=== PATIENT | female | born 1955 | race Caucasian/White ===

== ENCOUNTER 2018-05-20 18:53 | Emergency (ER) | payer BC, OTHER ==
--- NOTE | 2018-05-20 19:05 | EDM.PDOC ---
ED HPI GENERAL MEDICAL PROBLEM - General Stated Complaint: PAIN UPPER CHEST BACK SHOULDERS Time Seen by Provider: 05/20/18 18:53 Source of Information: Reports: Patient, Family History Limitations: Reports: No Limitations - History of Present Illness INITIAL COMMENTS - FREE TEXT/NARRATIVE: 63 y.o.w.f came to the ed because of sudden backl felt weak, with malacia and mid upper abdominal pain after eating at [employer] at pm. Pt is on a mini does pack. Pt is nauseated but did not vomit. No trauma. Last upper GI endoscopy was 1 yeas ago and found to be normal. No other acute medical issues. BP 167/85 RR 20 Pulse ox 100% on RA Temp 36.7 Pulse 81 Onset Date: 05/20/18 Onset Time: 15:00 Duration: Hour(s):, Getting Worse, Intermittent Location: Reports: Abdomen Quality: Reports: Ache, Burning Severity: Moderate Improves with: Reports: Medication, Rest Worsens with: Reports: Eating Context: Reports: Other (bad food) Associated Symptoms: Reports: Other (nausea) Treatments STRATEGY ASSOCIATE: Reports: Other (see below) Epigastric/Mid back Pain Score (Numeric/FACES): 10 - Related Data Allergies Allergy/AdvReac Type Severity Reaction Status Date / Time ciprofloxacin Allergy Cannot Verified 05/20/18 19:03 Remember Home Meds: Home Meds LORazepam [Ativan] 0.5 mg PO BID PRN 02/26/15 [History] QUEtiapine [SEROquel] 25 mg PO BEDTIME 02/26/15 [History] LORazepam 0.5 mg PO BID 05/20/18 [History] Lansoprazole [Prevacid] 30 mg PO DAILY 05/20/18 [History] Ondansetron [Zofran ODT] 4 mg PO Q6H PRN #20 tab.dis 05/20/18 [Rx] methylPREDNISolone [Methylprednisolone] 4 mg PO DAILY 05/20/18 [History] Past Medical History Other Cardiovascular History: NOTHING CAME OF THE CHESTPAIN ED ROS GENERAL - Review of Systems Review Of Systems: See Below Constitutional: Reports: No Symptoms HEENT: Reports: No Symptoms Respiratory: Reports: No Symptoms Cardiovascular: Reports: No Symptoms Endocrine: Reports: No Symptoms GI/Abdominal: Reports: Abdominal Pain : Reports: No Symptoms Musculoskeletal: Reports: Back Pain Skin: Reports: No Symptoms Neurological: Reports: No Symptoms Psychiatric: Reports: No Symptoms Hematologic/Lymphatic: Reports: No Symptoms Immunologic: Reports: No Symptoms ED EXAM, NEURO - Physical Exam Exam: See Below Exam Limited By: No Limitations General Appearance: Alert, WD/WN, Mild Distress, Moderate Distress Eye Exam: Bilateral Eye: Normal Inspection Ears: Normal External Exam Nose: Normal Inspection Throat/Mouth: Normal Inspection, Normal Voice, No Airway Compromise Head Exam: Atraumatic, Normocephalic Neck: Normal Inspection, Supple, Non-Tender Respiratory/Chest: No Respiratory Distress, Lungs Clear, Normal Breath Sounds, Chest Non-Tender Cardiovascular: Normal Peripheral Pulses, Regular Rate, Rhythm, No Edema, No Gallop, No Murmur, No Rub GI/Abdominal: Tender (epigastric) (Female) Exam: Deferred Rectal (Female) Exam: Deferred Back Exam: Normal Inspection, Decreased Range of Motion, Paraspinal Tenderness, Vertebral Tenderness Extremities: Normal Inspection, Normal Range of Motion, Non-Tender, No Pedal Edema, Normal Capillary Refill Psychiatric: Normal Affect, Normal Mood Skin Exam: Warm, Dry, Intact, Normal Color, No Rash EKG INTERPRETATION EKG Date: 05/20/18 Time: 19:00 Rhythm: NSR Rate (Beats/Min): 69 Mcgrann: Normal P-Wave: Present QRS: Normal ST-T: Normal QT: Normal Comparison: NA - No Prior EKG Course - Vital Signs Text/Narrative:: 63 y.o.w.f came to the ed because of sudden backl felt weak, with malacia and mid upper abdominal pain after eating at [employer] at pm. Pt is on a mini does pack. Pt is nauseated but did not vomit. No trauma. Last upper GI endoscopy was 1 yeas ago and found to be normal. No other acute medical issues. BP 167/85 RR 20 Pulse ox 100% on RA Temp 36.7 Pulse 81 PE: Thin, waek appearing 63 y.o.w.f with bilat upper back pain radiating to her mid upper abdomen. Labs: WBC was 12. reminder of CBC neg BMP was neg except Na was 134 Imaging: CXR x 2 view: NAD Impression: [place]kin[place] food syndrome, gastritis, back pain Tx: Zofran, GI cocktail Reexam: Pain subsided 100% Plan: D/C with instructions Last Recorded V/S: Last Vital Signs Temp 36.5 C 05/20/18 20:52 Pulse 71 05/20/18 20:52 Resp 16 05/20/18 20:52 BP 122/73 05/20/18 20:52 Pulse Ox 100 05/20/18 20:52 - Orders/Labs/Meds Orders: Active Orders 24 hr Category Date Time Status Cooling Warming Measures [RC] ASDIRECTED Care 05/20/18 19:08 Active EKG Documentation Completion [RC] ASDIRECTED Care 05/20/18 19:04 Active CXR [Chest 2V] [CR] Stat Exams 05/20/18 19:00 Taken Ice Bag [Ice Therapy] [OM.PC] Routine Oth 05/20/18 19:08 Ordered EKG 12 Lead [EK] Routine Ther 05/20/18 19:04 Ordered Labs: Laboratory Tests 05/20/18 05/20/18 05/20/18 Range/Units 19:20 19:20 19:20 WBC 12.3 H (4.5-12.0) X10-3/uL RBC 4.42 (3.23-5.20) x10(6)uL Hgb 13.5 (11.5-15.5) g/dL Hct 41.3 (30.0-51.3) % MCV 93.5 (80-96) fL MCH 30.6 (27.7-33.6) pg MCHC 32.8 (32.2-35.4) g/dL RDW 12.4 (11.5-15.5) % Plt Count 221 (125-369) X10(3)uL MPV 9.2 (7.4-10.4) fL Neut % (Auto) 77.5 (46-82) % Lymph % (Auto) 14.8 (13-37) % [place] % (Auto) 6.0 (4-12) % Eos % (Auto) 0 L (1.0-5.0) % Baso % (Auto) 1 (0-2) % Neut # (Auto) 9.6 H (1.6-8.3) # Lymph # (Auto) 1.8 (0.6-5.0) # [place] # (Auto) 0.7 (0.0-1.3) # Eos # (Auto) 0.0 (0.0-0.8) # Baso # (Auto) 0.2 (0.0-0.2) # Sodium 134 L (135-145) mmol/L Potassium 3.5 (3.5-5.3) mmol/L Chloride 100 (100-110) mmol/L Carbon Dioxide 28 (21-32) mmol/L BUN 16 (7-18) mg/dL Creatinine 0.9 (0.55-1.02) mg/dL Est Cr Clr Drug Dosing 55.78 mL/min Estimated GFR (MDRD) > 60 (>60) BUN/Creatinine Ratio 17.8 (9-20) Glucose 121 H (80-116) mg/dL Calcium 8.8 (8.6-10.2) mg/dL Total Bilirubin (0.1-1.3) mg/dL Direct Bilirubin (0.10-0.20) mg/dL AST (5-25) IU/L ALT (12-36) U/L Alkaline Phosphatase (56-112) IU/L Creatine Kinase (60-160) IU/L Troponin I < 0.017 L (<0.017-0.056) ng/mL Total Protein (6.0-8.0) g/dL Albumin (3.2-4.6) g/dL Amylase (25-115) U/L 05/20/18 05/20/18 Range/Units 19:20 19:20 WBC (4.5-12.0) X10-3/uL RBC (3.23-5.20) x10(6)uL Hgb (11.5-15.5) g/dL Hct (30.0-51.3) % MCV (80-96) fL MCH (27.7-33.6) pg MCHC (32.2-35.4) g/dL RDW (11.5-15.5) % Plt Count (125-369) X10(3)uL MPV (7.4-10.4) fL Neut % (Auto) (46-82) % Lymph % (Auto) (13-37) % [place] % (Auto) (4-12) % Eos % (Auto) (1.0-5.0) % Baso % (Auto) (0-2) % Neut # (Auto) (1.6-8.3) # Lymph # (Auto) (0.6-5.0) # [place] # (Auto) (0.0-1.3) # Eos # (Auto) (0.0-0.8) # Baso # (Auto) (0.0-0.2) # Sodium (135-145) mmol/L Potassium (3.5-5.3) mmol/L Chloride (100-110) mmol/L Carbon Dioxide (21-32) mmol/L BUN (7-18) mg/dL Creatinine (0.55-1.02) mg/dL Est Cr Clr Drug Dosing mL/min Estimated GFR (MDRD) (>60) BUN/Creatinine Ratio (9-20) Glucose (80-116) mg/dL Calcium (8.6-10.2) mg/dL Total Bilirubin 0.2 (0.1-1.3) mg/dL Direct Bilirubin 0.08 L (0.10-0.20) mg/dL AST 20 (5-25) IU/L ALT 31 (12-36) U/L Alkaline Phosphatase 73 (56-112) IU/L Creatine Kinase 45 L (60-160) IU/L Troponin I (<0.017-0.056) ng/mL Total Protein 7.6 (6.0-8.0) g/dL Albumin 3.7 (3.2-4.6) g/dL Amylase 65 (25-115) U/L Meds: Medications Discontinued Medications Generic Name Dose Route Start Last Admin Trade Name Freq PRN Reason Stop Dose Admin Al Hydroxide/Mg Hydroxide 15 0 ml 05/20/18 19:20 05/20/18 19:31 ml/ Lidocaine HCl 15 ml PO 05/20/18 19:21 30 ml ONETIME ONE Administration Ketorolac Tromethamine 60 mg 05/20/18 19:07 05/20/18 19:24 Toradol IM 05/20/18 19:08 60 mg ONETIME STA Administration Ondansetron HCl 8 mg 05/20/18 19:20 05/20/18 19:24 Zofran Odt PO 05/20/18 19:21 8 mg ONETIME ONE Administration Departure - Departure Time of Disposition: 20:37 Disposition: Home, Self-Care 01 Condition: Good Clinical Impression: Gastritis, Back pain - Discharge Information Prescriptions: Ondansetron [Zofran ODT] 4 mg PO Q6H PRN #20 tab.dis PRN Reason: Nausea Instructions: Gastritis, Adult, [id number], Ondansetron oral dissolving tablet, Ketorolac injection Referrals: Maribell Bell PA [Primary Care Provider] - Forms: ED Department Discharge Additional Instructions: Please advance diet as tolerated, please take one table spoon of Maalox every evening for the next 5 days, avoid [place], spicy food, no coffee. Please take your Meds with food, Zofran for nausea, please f/u, come back if your symptoms get worse acutely. - My Orders Last 24 Hours: My Active Orders 05/20/18 19:00 CXR [Chest 2V] [CR] Stat 05/20/18 19:04 EKG Documentation Completion [RC] ASDIRECTED EKG 12 Lead [EK] Routine 05/20/18 19:08 Cooling Warming Measures [RC] ASDIRECTED Ice Bag [Ice Therapy] [OM.PC] Routine - Assessment/Plan Last 24 Hours: My Active Orders 05/20/18 19:00 CXR [Chest 2V] [CR] Stat 05/20/18 19:04 EKG Documentation Completion [RC] ASDIRECTED EKG 12 Lead [EK] Routine 05/20/18 19:08 Cooling Warming Measures [RC] ASDIRECTED Ice Bag [Ice Therapy] [OM.PC] Routine
[2018-05-20] MEDS ORDERED: Ketorolac 60 MG/2 ML SDV IM STA (19:07)
[2018-05-20] MEDS ORDERED: Ondansetron 8 MG Tab.DIS PO ONE (19:20)
[2018-05-20] MEDS ORDERED: Alum Hydroxide/Mag Hydroxide 15 ML, Lidocaine 2% 15 ML PO ONE ×2 (19:20)
[2018-05-20 21:04] VITALS: BP 122/73
--- NOTE | 2018-05-23 10:59 | CR ---
INDICATION: Back pain, chest pain, sudden onset. CHEST: AP and lateral views of the chest were obtained 05-20-18-no comparison. The heart appeared normal in size and shape. The aorta is somewhat is tortuous with calcifications in the arch and possibly minimally in the descending portion. A moderate dextro-convex rotoscoliosis is noted at the thoracolumbar spine. Finding suggesting COPD are noted. The posterior sulcus on the right is somewhat blunted which likely is fibrotic in nature-a definite active infiltrate or effusion was not identified, however, there is bronchial cuffing at the lung bases of mild to moderate degree which may be on the basis of active peribronchial disease and should be correlated clinically. It may also be on the basis of fibrosis. Minimal superior endplate compression is noted at what appears to be T11. This is of indeterminate age. IMPRESSION: 1. No definite acute process. However bronchial wall cuffing is noted which should be correlated clinically as it could represent active peribronchial disease. 2. Probable COPD. 3. ASD aorta. 4. Scoliosis. 5. Endplate compression at what appears to be T11 which is of indeterminate age. MTDD
== END 2018-05-20 21:00 | disposition home or self-care (01) ==
LOC: FB.ED 18:53
DX: K29.70 Gastritis, unspecified, without bleeding (principal); M54.9 Dorsalgia, unspecified; Z79.899 Other long term (current) drug therapy; Z88.1 Allergy status to other antibiotic agents
CPT/HCPCS: 36415; 71046; 80048; 80076; 82150; 82550; 84484; 85025; 93005; 96372; 99284; A9270; J1885

== ENCOUNTER 2021-11-19 07:56 | Day surgery (SDC) | payer MEDICARE ==
[2021-11-19] MEDS ORDERED: Midazolam 1 MG/ML 2 ML SDV IV ONE (07:57)
[2021-11-19] MEDS ORDERED: Propofol 200 MG/20 ML SDV IV ONE (07:57)
[2021-11-19] MEDS: Lactated Ringers 1,000 ML IV SCH (08:30)
[2021-11-19] MEDS ORDERED: Sodium Chloride 0.9% 10 ML Syringe FLUSH PRN (09:00)
[2021-11-19 09:58] VITALS: BP 122/69; PULSE 73
== END 2021-11-19 10:02 | disposition home or self-care (01) ==
LOC: FB.SDS 07:56
PROVIDERS: ATTEND Surgery
DX: Z12.11 Encounter for screening for malignant neoplasm of colon (principal); K57.30 Diverticulosis of large intestine without perforation or abscess without bleeding; F41.9 Anxiety disorder, unspecified; F32.A Depression, unspecified; K21.9 Gastro-esophageal reflux disease without esophagitis; E78.5 Hyperlipidemia, unspecified; G62.9 Polyneuropathy, unspecified; E03.9 Hypothyroidism, unspecified; M81.0 Age-related osteoporosis without current pathological fracture; Z98.890 Other specified postprocedural states; Z79.899 Other long term (current) drug therapy; Z88.8 Allergy status to other drugs, medicaments and biological substances
CPT/HCPCS: 00812-QZ; J2250; J2704; J7120